=== PATIENT | male | born 1990 | race Caucasian/White ===

== ENCOUNTER 2016-11-30 10:35 | Day surgery (SDC) | payer OTHER ==
[~2016-11-30 10:35] MED LIST: EPINEPHRINE INJ 1 MG/10 ML DISP.SYRIN ONE; FLUMAZENIL INJ 0.5 MG/5 ML VIAL IV ONE; GLUCAGON,HUMAN RECOMB 1 MG INJ ONE; GLYCOPYRROLATE INJ 0.4 MG/2 ML VIAL ONE; NALOXONE HCL INJ/PF 0.4 MG/1 ML SDV ONE; ONDANSETRON HCL INJ/PF 4 MG/2 ML SDV ONE; PROMETHAZINE HCL INJ 25 MG/1 ML VIAL ONE
[2016-11-30] MEDS: MIDAZOLAM 2 MG/2 ML INJ ONE ×3 (10:55→11:02)
[2016-11-30] MEDS: FENTANYL CITRATE INJ/PF 100 MCG/2 ML AMPUL ONE ×2 (10:57→11:05)
[2016-11-30 12:36] VITALS: BP 119/67
[2016-11-30 12:42] LABS: ABSOLUTE EOSINOPHILS # (AUTO) 0.1 10^3/uL (0.0-0.6); ABSOLUTE LYMPHOCYTES (AUTO) 1.4 10^3/uL (0.5-4.7); ABSOLUTE MONOCYTES (AUTO) 0.5 10^3/uL (0.1-1.4); BASOPHILS % (AUTO) 0.3 % (0-2); EOSINOPHILS % (AUTO) 2.5 % (0-6); HEMOGLOBIN 14.5 g/dL (13.5-17.0); HGB HCT DIFFERENCE 1.5; LYMPHOCYTES % (AUTO) 23.3 % (13-45); MEAN CORPUSCULAR HEMOGLOBIN 28.9 pg (27.0-33.4); MEAN CORPUSCULAR HGB CONC 34.5 g/dL (32.0-36.0); MEAN CORPUSCULAR VOLUME 84 fl (80-97); MONOCYTES % (AUTO) 8.7 % (3-13); RED BLOOD COUNT 5.01 10^6/uL (4.35-5.55); RED CELL DISTRIBUTION WIDTH 12.1 % (11.5-14.0); SEGMENTED NEUTROPHILS % (AUTO) 65.2 % (42-78); WHITE BLOOD COUNT 6.1 10^3/uL (4.0-10.5)
[2016-11-30 13:04] LABS: IRON 58.8 ug/dL (49-181)
--- NOTE | 2016-11-30 14:37 | DISCHARGE SUMMARY E ---
Discharge Summary NAME: RAMONA ANDERSON : 1990 AGE: 25Y ADMITTED: 11/30/2016 DISCHARGED: 11/30/2016 PROCEDURE: Colonoscopy. HISTORY: A 25-year-old healthy, young male presented to us with history of large amount bright red blood per rectum on 2-3 occasions in the last 2 years. Because of the recurrent rectal bleeding and the patient concern, he was admitted. Underwent colonoscopy that shows no active bleeding. Most likely, the bleeding is secondary to proctitis, anal fissure, external hemorrhoids. DISCHARGE PLAN: Assurance. Soft diet. Baseline CBC. Consider colorectal surgical consult if the bleeding continues. For now, his colonoscopy is negative above the anorectal area all the way to the cecum. Large amount of brown stool in his cecum. Followup office visit in the next few days. DICTATING PHYSICIAN: DALE MANRIQUE M.D. [id number] PHY#: [id number] ID: [id number] JOB#: [id number] ACCT: [id number] cc:[facility] DALE MANRIQUE M.D. >
--- NOTE | 2016-11-30 14:40 | OPERATIVE REPORT E ---
Operative Report NAME: RAMONA ANDERSON : 1990 AGE: 25Y DATE OF SURGERY: 11/30/2016 ROOM: PREOPERATIVE DIAGNOSIS: Rectal bleeding. POSTOPERATIVE DIAGNOSES: 1. External hemorrhoids, mild. 2. Proctitis, mild. PROCEDURE: Colonoscopy. SURGEON: DALE MANRIQUE M.D. ANESTHESIA: 1. Versed 6 mg. 2. Fentanyl 200 mcg. TISSUE REMOVED OR ALTERED: None. DESCRIPTION OF PROCEDURE: RECTAL EXAM: Rectal exam shows external hemorrhoids and proctitis. SIGMOID AND DESCENDING COLON: Normal. TRANSVERSE COLON: Normal. ASCENDING COLON: Normal. CECUM: Normal. A large amount of brown liquid stool in the cecum. RECTUM: I tried to do a retroflexed position more than once, unable to retroflex the scope in the rectum secondary to strong anal muscle spasm. Rectal exam shows normal prostate. Scope withdrawn from cecum, ascending, transverse, descending, sigmoid, all the way to the rectum. CONCLUSION: 1. External hemorrhoids. 2. Recurrent rectal bleeding, etiology undetermined. Most likely secondary to external hemorrhoids and anal fissure. PLAN: 1. Assurance. 2. Soft diet. 3. Baseline CBC. 4. If the patient has further rectal bleeding, emergency consult with the colorectal surgeon is considered. DICTATING PHYSICIAN: DALE MANRIQUE M.D. [id number] [id number] Y#: [id number] ID: [id number] JOB#: [id number] ACCT: [id number] cc:[facility] DALE MANRIQUE M.D. >
--- NOTE | 2016-11-30 14:41 | HISTORY AND PHYSICAL E ---
History and Physical NAME: RAMONA ANDERSON : 1990 AGE: 25Y ADMITTED: 11/30/2016 ROOM: CHIEF COMPLAINT: Rectal bleeding. HISTORY OF PRESENT ILLNESS: A 25-year-old young male with recurrent rectal bleeding for 2 years, frequent bright red blood per rectum, large amount of bleeding. Because of recurrent bleeding on more than 1 occasion and the patient is concerned, he is brought into colonoscopy. PAST SURGICAL HISTORY: Negative. FAMILY HISTORY: Unremarkable. REVIEW OF SYSTEMS: HEAD, EYES, EARS, NOSE, THROAT: Negative. CARDIAC: Negative. MUSCULOSKELETAL: Negative. NEUROLOGIC: Negative. PHYSICAL EXAMINATION: GENERAL: Pleasant, alert, oriented, in no acute distress. VITAL SIGNS: Blood pressure is 140/80, pulse 80, respirations 20, temp is 98. HEAD, EYES, EARS, NOSE, THROAT: Normal. NECK: Supple. LUNGS: Clear. ABDOMEN: Soft. NEUROLOGIC: Exam negative. CONCLUSION: Rectal bleeding, etiology undetermined. PLAN: Colon exam. DICTATING PHYSICIAN: DALE MANRIQUE M.D. [id number] [id number] Y#: [id number] ID: [id number] JOB#: [id number] ACCT: [id number] cc:[facility] DALE CHAN M.D. >
== END 2016-11-30 12:40 | disposition home or self-care (01) ==
LOC: END 10:35
PROVIDERS: ATTEND Specialist
PROC: 0DJD8ZZ Inspection of Lower Intestinal Tract, Via Natural or Artificial Opening Endoscopic (ICD-10-PCS; principal; 2016-11-30 11:00)
DX: K64.4 Residual hemorrhoidal skin tags (principal); K60.2 Anal fissure, unspecified; K92.1 Melena
CPT/HCPCS: 45378; 36415; 82728; 83540; 85025; J2250; J3010; J0171; J1610; J2310; J2405; J2550; J3490